=== PATIENT | female | born 1985 | race Caucasian/White ===

== ENCOUNTER 2017-07-30 11:28 | Observation (INO) | payer MEDICARE, MEDICAID ==
[2017-07-30 12:07] LABS: BASOPHILS 0.1 % (0-2); EOSINOPHILS 0.4 % (0-7); HEMATOCRIT 40.3 % (36.0-48.0); HEMOGLOBIN 14.2 g/dL (12-16); IMMATURE GRANULOCYTES 0.4 % (0-5); LYMPHOCYTES 30.1 % (15-50); MCH 31.8 pg (26.0-34.0); MCHC 35.2 g/dL (31.0-37.0); MCV 90.4 fL (80.0-100.0); MEAN PLATELET VOLUME 9.6 fL (7.4-10.4); MONOCYTES 5.5 % (2-11); NEUTROPHILS 63.5 % (40-80); PLATELET COUNT 186 10x3/uL (130-400); RBC 4.46 10x6/uL (4.00-5.40); RDW 12.3 % (11.5-14.5); WBC 7.6 10x3/uL (4.8-10.8)
[2017-07-30 12:13] LABS: APTT 26.8 SECONDS (22.8-39.4); INR 0.94 (0.85-1.17); PROTIME 12.4 SECONDS (11.6-15.0)
[2017-07-30 12:34] LABS: ALBUMIN 3.5 g/dL (3.4-5.0); ALKALINE PHOSPHATASE 99 U/L (46-116); ALT (SGPT) 25 U/L (10-68); BILIRUBIN - TOTAL 0.49 mg/dL (0.2-1.3); CALC OSMOLALITY 279 mosm/kg (275-300); CALCIUM 8.6 mg/dL (8.5-10.1); CARBON DIOXIDE 25.7 mmol/L (21.0-32.0); CHLORIDE - SERUM 103 mmol/L (98-107); CREATININE - SERUM 0.7 mg/dL (0.6-1.3); GLUCOSE 209 mg/dL (74-106); POTASSIUM - SERUM 4.6 mmol/L (3.5-5.1); SODIUM 137 mmol/L (136-145); UREA NITROGEN 13 mg/dL (7-18); eGFR NON AFRICAN AMERICAN > 90 mL/min (90-120)
[2017-07-30 17:16] VITALS: BP 127/76; BMI 22.4
[2017-07-30 17:40] LABS: CHOL - HDL RATIO 2.8 ratio (2.3-4.1); LDL-HDL RATIO 1.2 ratio (1.5-3.5)
[2017-07-30 17:49] LABS: UDS - AMPHET NEGATIVE QUAL (NEGATIVE); UDS - BARB NEGATIVE QUAL (NEGATIVE); UDS - BENZO NEGATIVE QUAL (NEGATIVE); UDS - COCAINE NEGATIVE QUAL (NEGATIVE); UDS - OPIATE POSITIVE QUAL (NEGATIVE); UDS - PCP NEGATIVE QUAL (NEGATIVE); UDS - THC NEGATIVE QUAL (NEGATIVE)
--- NOTE | 2017-07-30 19:53 | NUR ---
PATIENT IS REQUESTING MEDICATION FOR PAIN. VERBALIZED PAIN ON HER RIGHT SIDE OF HER FOREHEAD TO THE SIDE OF HER HEAD ABOVE HER EAR, AND DOWN HER BACK AND RIGHT ARM. SHE STATED SHE HAS HAD THIS PAIN CONSTANTLY SINCE MIDNIGHT LAST NIGHT. SHE DESCRIBES HER PAIN A PRESSURE IN HER HEAD THAT 'MAKES ME FEEL LIKE MY RIGHT EYE IS GOING TO POP OUT.' EXPLAINED TO PATIENT THAT THE DOCTOR HAS BEEN AWARE OF HER REQUEST FOR PAIN MEDICATION AND I EXPLAINED THERE IS NO ORDER FOR PAIN MEDICINE. EXPLAINED THAT SHE IS HERE FOR A NEUROLOGIC REASON, AND WE DO NOT WANT TO GIVE HER ANYTHING MOOD ALTERING BECAUSE WE DO NOT WANT TO MASK ANY SYMPTOMS. SHE STATED "I UNDERSTAND". TOLD HER I CAN CALL AND ASK FOR TYLENOL, SHE STATED "OKAY THANK YOU."
[2017-07-30 20:00] VITALS: BP 109/84
[2017-07-30 21:05] VITALS: BP 117/72; BP 124/79; BP 128/71
--- NOTE | 2017-07-30 21:05 | NUR ---
PAGED LENKA DURAND.
--- NOTE | 2017-07-30 21:06 | NUR ---
PATIENT REPORTED TO MAICOL THE HOOK AND EYE ATTACHER THAT SHE GOT DIZZY WHEN TRYING TO GET OFF OF THE TOILET AND SHE FELL FOWARD AND CAUGHT HERSELF WITH HER HANDS, SHE STATED "I HANDED ON ALL FOURS, LIKE ON MY HANDS AND FEET. I YELLED FOR HIM (POINTED AT A MALE IN HER ROOM) AND HE CAME AND HELPED ME GET UP AND GET IN BED. I COULD BARELY WALK BECAUSE I AM SO WEAK." PATIENT DENIES NEW PAIN. NO SIGNS OF INJURY ON HANDS OR FEET. REASSESSED NEUROCHECKS, NO CHANGES. CHECKED ORTHOSTATIC V/S SEE FLOWSHEET. PATIENT DENIED DIZZINESS WHEN SHE WAS LAYING, DENIED DIZZINESS WHEN SHE SAT ON THE SIDE OF THE BED. WHEN SHE STOOD UP SHE VERBALIZED DIZZINESS AND STATED "I AM DIZZY AND I JUST FEEL REALLY WEIRD." SHE KEPT CLOSING HER EYES AND OPENING THEM AND LOOKING AROUND, I KEPT TELLING HER, JUST KEEP YOUR EYES OPEN AND LOOK UP, KEEP TALKING TO ME. WHEN HER BP WAS FINISHED, SHE LAYED BACK DOWN IN BED. SHE STATED SHE FELT BETTER.
--- NOTE | 2017-07-30 21:30 | NUR ---
FALL PRECAUTIONS IN PLACE, NATIVIDAD MAT ALARM ON, NON-SKID SOCKS ON, YELLOW ARM BAND ON. EDUCATED PATIENT ON FALL PRECAUTIONS, SHE VERBALIZED UNDERSTANDING.
--- NOTE | 2017-07-30 21:54 | NUR ---
SPOKE WITH LENKA, SHE STATED "THE PATIENT NEEDS TO STAY IN BED."
--- NOTE | 2017-07-30 23:30 | NUR ---
PATIENT'S NATIVIDAD MAT ALARM GOING OFF, WENT IN PATIENT'S ROOM. SHE WAS ON THE TOILET SHE STATED "I KNOW YOU SAID NOT TO GET OUT OF BED BUT I HAD TOO. I HAD TO GO SO BAD." TALKED TO HER ABOUT PUSHING HER CALL LIGHT FOR ASSISTANCE AND WAITING FOR ASSISTANCE. SHE VERBALIZED UNDERSTANDING. SHE AMBULATED INDEPENDENTLY, GAIT STEADY. BACK IN BED. NATIVIDAD ALARM ON. SHE DENIES NEEDS.
[2017-07-31 04:00] VITALS: BP 112/73
--- NOTE | 2017-07-31 07:35 | NUR ---
ASSESSMENT PER FLOW SHEET.PT WITHOUT DISTRESS AT PRESENT. IS AT BEDSIDE TO SEE PT.FALL PREVENTION IN PLACE.CALL LIGHT IN REACH.
[2017-07-31 08:21] VITALS: BP 113/63
[2017-07-31 08:22] VITALS: BP 113/63
[2017-07-31 12:40] VITALS: BP 125/81
[2017-07-31 13:09] VITALS: BMI 22.3
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
[2017-07-31 16:02] LABS: HEMOGLOBIN A1C 7.6 % (4.8-6.0)
[2017-07-31] MEDS ORDERED: ZOVIRAX200 MG PO (16:31)
[2017-07-31] MEDS ORDERED: GLUCOPHAGE500 MG PO (16:32)
[2017-07-31] MEDS ORDERED: PREDNISONE20 MG PO (16:32)
[2017-07-31] MEDS ORDERED: BUTALB-APAP-CA1 EACH PO (16:33)
--- NOTE | 2017-07-31 18:23 | NUR ---
DISCHARGE INSTRUCTIONS,STATES UNDERSTANDING.IV DCD WITH CATH INTACT.LEFT UNIT VIA AMBULATORY.DECLINES WHEELCHAIR
--- NOTE | 2017-08-04 22:01 | EC ---
PATIENT:ANIKA HUNT DATE OF SERVICE: 07/30/17 SEX: F MEDICAL RECORD: [id number] DATE OF : [birth year] LOCATION:[facility] AGE OF PATIENT: 32 ADMISSION DATE: 07/30/17 REFERRING PHYSICIAN: INTERPRETING PHYSICIAN: CHITO JERNIGAN MD ECHOCARDIOGRAM REPORT ECHO CHARGES 4 ECHO COMPLETE CLINICAL DIAGNOSIS: CVA/ATTRIAL FIB ECHOCARDIOGRAPHIC MEASUREMENTS (adult normal given) AC root (d.<3.7cm) 3.1 cm LV Septum d (<1.2 cm> 1.3 cm Valve Excursion 1.3 cm LV Septum (systole) 1.4 cm Left Atria (s.<4.0cm> 2.9 cm LVPW d(<1.2cm) 1.1 cm RV (d.<2.3cm) 2.6 cm LVPW (sytole) 1.3 cm LV diastole(<5.6CM) 4.0 cm MV E-F(>70mm/sec) cm LV systole 2.5 cm LVOT Diameter 1.9 cm MV exc.(>10mm) cm Est.ejection fraction (50-75%) % Pericardial Effusion N DOPPLER: LVIT cm/sec A 60.0 cm/sec E 74.0 cm/sec LA cm/sec RVSP 23 mmHg LVOT 80 cm/sec AOP1/2T m/s Asc. Ao 115 cm/sec RVOT 65 cm/sec RA cm/sec PA 71 cm/sec AV Gradient Peak 5.25 mmHg AV Mean 2.65 mmHg AV Area 2.2 cm MV Gradient Peak 3.42 mmHg MV Mean 1.08 mmHg MV Area cm COMMENTS: Senior Business Manager: 2 MIKE LOMAX [employer] Worker: 4 Dr. Jernigan TAPE# PACS DATE OF SERVICE: 07/31/2017 PROCEDURE: Transthoracic echocardiogram. FINDINGS: 1. The left ventricle is of normal size, normal shape, and normal function. Ejection fraction is 65%. 2. The mitral valve is normal. 3. The tricuspid valve is normal with normal right ventricular systolic pressures. ECHOCARDIOGRAM REPORT [id number] ANIKA HUNT 4. The pulmonic valve is normal. 5. The right atrium is of normal size and normal function. 6. The right ventricle is of normal size and normal function. 7. There is no pericardial effusion. CONCLUSION: The patient has normal echocardiogram. TRANSINT:[id number] Voice Confirmation ID: [id number] DOCUMENT ID: [id number] CHITO JERNIGAN MD at 2201 CC: [id number] DICTATION DATE: 08/03/17 1037 ASSOCIATE PUBLISHER: 08/03/17 1144 DIS IN 07/31/17 [facility] [address] [place] [address]
== END 2017-07-31 18:24 | disposition home or self-care (01) ==
LOC: EDBD 11:28 → D.ER 11:28 → D.MS 14:11 → OBSVTIME 14:38 → D.MS 07-31 18:24
PROVIDERS: Emergency Medicine; ADMIT Family Medicine
DX: G51.0 Bell's palsy (principal); R53.1 Weakness; R47.81 Slurred speech; E11.9 Type 2 diabetes mellitus without complications; F41.9 Anxiety disorder, unspecified

== ENCOUNTER 2018-09-15 13:25 | Emergency (ER) | payer MEDICARE ==
[~2018-09-15] VITALS: Ht 172.7 cm; Wt 75.9 kg
[~2018-09-15 13:25] MED LIST: BUTALB-APAP-CA1 EACH PO; GLUCOPHAGE500 MG PO; PREDNISONE20 MG PO; ZOVIRAX200 MG PO
[2018-09-15 13:34] VITALS: BP 135/77; Ht 172.7 cm; Wt 75.9 kg
[2018-09-15] MEDS ORDERED: HUMULIN R100 U/ML SC (13:39)
[2018-09-15] MEDS ORDERED: ULTRAM50 MG PO (14:37)
== END 2018-09-15 15:08 | disposition home or self-care (01) ==
LOC: D.ER 13:25
DX: R07.89 Other chest pain (principal); E11.9 Type 2 diabetes mellitus without complications

== ENCOUNTER 2019-07-06 11:58 | Emergency (ER) | payer MEDICARE ==
[~2019-07-06] VITALS: Ht 170.2 cm; Wt 78.2 kg
[~2019-07-06 11:58] MED LIST changes: +HUMULIN R100 U/ML SC; +ULTRAM50 MG PO
[2019-07-06 11:59] VITALS: Ht 170.2 cm; Wt 78.2 kg
[2019-07-06] MEDS ORDERED: VALIUM 2 MG TAB2 MG PO (12:00)
[2019-07-06] MEDS ORDERED: LANTUS SOL100 UNIT/1 SC (12:00)
[2019-07-06] MEDS ORDERED: ZOFRAN8 MG PO (14:23)
[2019-07-06] MEDS ORDERED: TORADOL10 MG PO (14:23)
[2019-07-06 14:45] VITALS: BP 125/74
== END 2019-07-06 14:46 | disposition home or self-care (01) ==
LOC: D.ER 11:58
DX: M25.522 Pain in left elbow (principal); V43.62XA Car passenger injured in collision with other type car in traffic accident, initial encounter; Y93.89 Activity, other specified; Y92.410 Unspecified street and highway as the place of occurrence of the external cause

== ENCOUNTER 2019-10-21 06:32 | Day surgery (SDC) | payer MEDICARE ==
[~2019-10-21] VITALS: Ht 172.7 cm; Wt 77.1 kg
[~2019-10-21 06:32] MED LIST changes: +KLONOPIN1 MG; +LANTUS SOLOSTAR PE SQ; +TORADOL10 MG PO; +VALIUM 2 MG TAB2 MG PO; +VISTARIL25 MG; +ZOFRAN8 MG PO; +ZOLOFT25 MG PO
[2019-10-21 07:05] LABS: BASOPHILS 0.3 % (0-2); EOSINOPHILS 1.8 % (0-7); HEMATOCRIT 38.1 % (36.0-48.0); HEMOGLOBIN 13.1 g/dL (12-16); IMMATURE GRANULOCYTES 0.3 % (0-5); LYMPHOCYTES 49.5 % (15-50); MCH 31.3 pg (26.0-34.0); MCHC 34.4 g/dL (31.0-37.0); MCV 91.1 fL (80.0-100.0); MONOCYTES 5.7 % (2-11); NEUTROPHILS 42.4 % (40-80); PLATELET COUNT 197 10x3/uL (130-400); RBC 4.18 10x6/uL (4.00-5.40); RDW 12.4 % (11.5-14.5); WBC 7.3 10x3/uL (4.8-10.8)
[2019-10-21 07:16] LABS: CALC OSMOLALITY 280 mosm/kg (275-300); CALCIUM 8.5 mg/dL (8.5-10.1); CARBON DIOXIDE 26.4 mmol/L (21.0-32.0); CHLORIDE - SERUM 105 mmol/L (98-107); CREATININE - SERUM 0.7 mg/dL (0.6-1.3); GLUCOSE 146 mg/dL (74-106); POTASSIUM - SERUM 3.9 mmol/L (3.5-5.1); SODIUM 140 mmol/L (136-145); UREA NITROGEN 9 mg/dL (7-18); eGFR NON AFRICAN AMERICAN > 90 mL/min (90-120)
[2019-10-21 08:49] VITALS: BP 122/84; Ht 172.7 cm; Wt 77.1 kg
[2019-10-21 09:02] LABS: HCG URINE NEGATIVE (NEGATIVE)
--- NOTE | 2019-10-21 09:05 | NUR ---
0838 REQUEST FOR BEHAVIORAL HEALTH CONSULT CALLED TO AL JAMILOFFAL SEPARATOR.
--- NOTE | 2019-10-21 09:07 | NUR ---
0906 NOTIFIED BETYBAND SAW FILER THAT BEHAVIORAL HEALTH CONSULT HAS NOT BEEN DONE YET. SHE STATES SHE WILL CHECK ON IT.
--- NOTE | 2019-10-21 13:13 | NUR ---
1215-VSS.TOLERATING FULL LIQUID TRAY. ABD SOFT,NON DISTENDED. IV PATENT TO LEFT HAND AT KVO. REVIEWED DISCHARGE CRITERIA. VERBALIZED UNDERSTANDING. REPORTS PAIN 6/10 TO ABD,DESCRIBES INTERMITTENT CRAMPING. CL IN EASY REACH. MOTHER AT BEDSIDE.
--- NOTE | 2019-10-21 13:21 | NUR ---
1239-ADMINISTERED NORCO 5/325MG 1 BY MOUTH FOR ABD PAIN.VSS. ABLE TO AMBULATE TO RESTROOM AND URINATE WITHOUT COMPLICATIONS. VERY PLEASANT TO CARE FOR.
--- NOTE | 2019-10-21 13:23 | NUR ---
1305-DISCHARGE CRITERIA MET. REPORTS PAIN LEVEL DECREASED FROM NORCO 5/325MG FROM 04/11 TO 01/09. REMOVED IV FROM LEFT HAND WITH CATH INTACT,DISPOSED INTO SHARPS,COVERED SITE WITH GUAZE,SECURED WITH MEDIPORE TAPE. REVIEWED POST OPERATIVE INSTRUCTIONS AND FOLLOW UP APPOINTMENT.VERBALIZED UNDERSTANDING. MOTHER AT BEDSIDE.
--- NOTE | 2019-10-21 13:26 | NUR ---
1312-PT DRESSED. ESCORTED OUT VIA W/C BY STAFF WITH MOTHER AWAITING TO DRIVE HOME. DISCHARGE PAPERWORK IN HAND.
--- NOTE | 2019-11-07 15:42 | OP ---
PATIENT NAME: ANIKA HUNT MEDICAL RECORD: [id number] :85 [facility] DATE: SURGEON: JHON DALEY MD DATE OF OPERATION: 10/21/2019 PREOPERATIVE DIAGNOSIS: Atypical glandular cells of undetermined significance on Pap smear. POSTOPERATIVE DIAGNOSIS: Atypical glandular cells of undetermined significance on Pap smear. PROCEDURES: Hysteroscopy, dilation and curettage, endocervical curettage, and loop elective surgical excision procedure. SURGEON: Jhon Daley MD ANESTHESIA: General endotracheal. INTRAVENOUS FLUIDS: Per anesthesia record. SPECIMENS: Endometrial curettings, endocervical curettings, and cervical cone biopsy. COMPLICATIONS: None apparent. FINDINGS: 1. Grossly normal appearing endometrial canal. 2. Grossly normal appearing endocervical canal. 3. Grossly normal appearing ectocervix and external genitalia. ESTIMATED BLOOD LOSS: Minimal. DESCRIPTION OF PROCEDURE: The patient was taken to the operating room where general anesthesia was achieved without difficulty. The patient was then prepped and draped in normal sterile fashion in the dorsal lithotomy position in the [facility]. The bladder was drained of approximately 100 cc of clear yellow urine. At this point, a Graves speculum was placed in the vagina. The cervix was identified and the anterior lip of the cervix was grasped with a single tooth tenaculum. No dilation was needed for the Essure hysteroscope to enter the cervix and provide surveillance of the endocervical and endometrial cavities. After visual assessment, the patient was dilated to approximately 7 mm, at which point a #1 curette was used to obtain a 4 quadrants sampling of the endometrium. Attention was then turned to the endocervical canal, which appeared grossly normal. A Kevorkian curette was used to obtain samples of the endocervix. Attention was then turned to ectocervix where the single-tooth tenaculum was removed and a 1 cm LEEP electrode was used to excise the transitional zone of the ectocervix at the transitional zone. The cervical crater was then cauterized using the ball cautery with good hemostasis noted. The patient tolerated the procedure well, transferred to postanesthesia recovery stable without incident. TRANSINT:[id number] Voice Confirmation ID: [id number] DOCUMENT ID: [id number] OPERATIVE REPORT [id number] ANIKA HUNT JHON DALEY MD at 1542 CC: [id number] DICTATION DATE: 11/07/19 0718 ICE SKATER: 11/07/19 1127 [facility] [place] 10/21/19 [id number] [place] [address]
== END 2019-10-21 13:12 | disposition home or self-care (01) ==
LOC: D.OPS 06:32 → D.PAN 09:30 → D.OPS 09:30 → D.PAN 10:00 → D.OPS 13:12
PROVIDERS: Anesthesiology; ATTEND Obstetrics & Gynecology
DX: R87.619 Unspecified abnormal cytological findings in specimens from cervix uteri (principal); E11.9 Type 2 diabetes mellitus without complications; F32.9 Major depressive disorder, single episode, unspecified